=== PATIENT | male | born 2005 | race African-American/Black ===

== ENCOUNTER 2024-03-08 15:08 | Emergency (ER) | payer SELFPAY ==
[2024-03-08 15:26] VITALS: BP 131/65; PULSE 72; RESP 18; TEMP 37.1; O2SAT 99
--- NOTE | 2024-03-08 15:45 | ED.MALEGU ---
HPI - Male Genitourinary General Chief complaint: Urogenital-Male Stated complaint: std exposure Time Seen by Provider: 03/08/24 15:35 Source: patient Mode of arrival: ambulatory Limitations: no limitations History of Present Illness HPI Narrative: 18-year-old male presents for STI testing. Patient states no symptoms. Was exposed to chlamydia by his girlfriend. All systems reviewed and negative except as noted above. Related Data Allergies Allergy/AdvReac Type Severity Reaction Status Date / Time No Known Allergies Allergy Mild Verified 03/08/24 15:29 Review of Systems Review of Systems: CONSTITUTIONAL: Denies fever, chills, or sweats. EYES: Denies visual changes, redness, or discharge. ENT: Denies rhinorrhea, congestion, sore throat, or otalgia. CARDIOVASCULAR: Denies chest pain, palpitations, or edema. RESPIRATORY: Denies cough or dyspnea. GASTROINTESTINAL: Denies abdominal pain, nausea, vomiting, or diarrhea. GENITOURINARY: Denies dysuria or hematuria. SKIN: Denies rash or itching. MUSCULOSKELETAL: Denies back pain, joint pain, or myalgia. NEUROLOGIC: Denies headache, numbness, or weakness. PSYCHIATRIC: Denies anxiety or depression. All other systems reviewed are negative, except as documented in HPI. PMFSH Comments At time of signature, agree with nursing past medical, surgical, social and family history. There is no relevant family history pertinent to the presenting complaint. Exam Narrative: GENERAL: This is a well-nourished, well-developed patient, in no apparent distress. HEAD: normocephalic, atraumatic. EYES: PERRL. Sclera clear/white. Vision is grossly intact. EARS: External ears normal NOSE: External nose normal NECK: Neck supple, non-tender without lymphadenopathy, masses or thyromegaly. CARDIOVASCULAR: Regular rate and rhythm without murmurs, gallops, or rubs. RESPIRATORY: Clear to auscultation. Breath sounds equal bilaterally. No wheezes, rales, or rhonchi. SKIN: warm, Dry, intact with no suspicious lesions or rash, good texture and turgor. NEURO: awake, alert, and oriented to person, place and time. There were no obvious focal neurologic abnormalities. EXTREMITIES: No joint tenderness, effusion, or edema noted. Course Course Level of Care: Express Care Visit Vital Signs Vital signs: Vital Signs Temperature 37.1 C 03/08/24 15:26 Pulse Rate 72 03/08/24 15:26 Respiratory Rate 18 03/08/24 15:26 Blood Pressure 131/65 03/08/24 15:26 Pulse Oximetry 99 03/08/24 15:26 Oxygen Delivery Room Air 03/08/24 15:26 Temperature 37.1 C 03/08/24 15:26 Pulse Rate 72 03/08/24 15:26 Respiratory Rate 18 03/08/24 15:26 Blood Pressure 131/65 03/08/24 15:26 Pulse Oximetry 99 03/08/24 15:26 Oxygen Delivery Room Air 03/08/24 15:26 Reviewed MDM - Male Genitourinary MDM Narrative Medical decision making narrative: At time of signature, agree with nursing past medical, surgical, social and family history. There is no relevant family history pertinent to the presenting complaint. Discharge Plan Discharge Clinical Impression: Concern about STI in male without diagnosis, Exposure to chlamydia Patient Disposition: Home, Self-Care Condition: Stable Instructions: Antibiotic Form, Chlamydia (ED) Additional Instructions: testing for gonorrhea, chlamydia and Trichomonas was ordered today. Results will take 48-72 hours. Take doxycycline as prescribed to treat chlamydia. Avoid all sexual activity for 3 weeks. Follow-up with your primary care physician if symptoms not improving. Prescriptions: New doxycycline hyclate 100 mg capsule 100 mg PO BID 7 Days Qty: 14 0RF Follow-up/Referrals: PHYSICIAN,[employer] STAFFING ADVISOR [Primary Care Provider] - Time of Disposition: 15:41
[2024-03-08 19:18] LABS: Trichomonas Vag PCR NOT DETECTED (NOT DETECTE)
[2024-03-08 21:16] LABS: Chlamydia trachomatis NOT DETECTED (NOT DETECTE); Neisseria gonorrhoeae PCR NOT DETECTED (NOT DETECTE)
== END 2024-03-08 15:45 | disposition home or self-care (01) ==
PROVIDERS: Emergency Provider Nurse Practitioner Family
DX: Z20.2 Contact with and (suspected) exposure to infections with a predominantly sexual mode of transmission (principal); J45.909 Unspecified asthma, uncomplicated
CPT/HCPCS: 87491; 87591; 87661; 99213; G0463